=== PATIENT | male | born 1945 | race American Indian/Alaskan Native ===

== ENCOUNTER 2017-04-05 12:03 | Emergency (ER) | payer SELFPAY ==
[2017-04-05 12:18] VITALS: BP 138/98
--- NOTE | 2017-04-05 12:48 | Emergency Department Report ---
Entered by ANETA DODD, acting as scribe for NELLY ROGEL NP. Chief Complaint: Chest Pain Stated Complaint: CHEST PAIN - HPI History of Present Illness: 71 y/o male, nontoxic, well developed, NAD, c/o chest pain beginning 1 week ago. Associated pain radiation to the back but denies fever, SOB, NVD, MORALES, blurry vision, dizziness. Patient states the pain started when his daughter sprayed cleaning chemicals around the house. - Exam Vital Signs: Vital Signs 04/05/17 12:13 Temperature 98.6 F Pulse Rate 80 Respiratory 22 Rate Blood Pressure 138/98 O2 Sat by Pulse 98 Oximetry Physical Exam: GENERAL: The patient is a well-developed, well-nourished male in no apparent distress. Patient is alert and oriented x3. LUNGS: Clear to auscultation. Non labor breathing. No intercostal retractions. HEART: Regular rate and rhythm without murmur, rubs or gallops. No reproducible MSE screening note: Focused history and physical exam performed. Due to findings the following was ordered: CBC, CMP, BNP, EKG, PT, PTT, Troponin, Cardiac CK, Chest x-ray ED Disposition for MSE Condition: Stable This documentation as recorded by the scribe,ANETA DODD,accurately reflects the service I personally performed and the decisions made by ,NELLY ROGEL, ROGERIO.
[2017-04-05 13:04] LABS: Eosinophils % (Auto) 3.4 % (0.0-4.3); Hemoglobin 15.4 gm/dl (11.8-15.2); Mean Corpuscular HGB Conc 33 % (32-34); Mean Corpuscular Hemoglobin 33 pg (28-32); Mean Corpuscular Volume 98 fl (84-94); Platelet Count 199 K/mm3 (140-440); Red Blood Count 4.67 M/mm3 (3.65-5.03); Red Cell Distribution Width 14.9 % (13.2-15.2); White Blood Count 7.2 K/mm3 (4.5-11.0)
[2017-04-05 13:13] LABS: INR 0.99 (0.87-1.13)
[2017-04-05 13:14] LABS: Partial Thromboplastin Time 27.7 Sec. (24.2-36.6)
[2017-04-05 13:20] LABS: Creatine Kinase MB 2.8 ng/mL (0.0-4.0)
[2017-04-05 13:21] LABS: Alanine Aminotransferase 23 units/L (7-56); Albumin 4.2 g/dL (3.9-5); Albumin/Globulin Ratio 1.4 %; Alkaline Phosphatase 129 units/L (35-129); Anion Gap 19 mmol/L; Blood Urea Nitrogen 15 mg/dL (9-20); Calcium 10.4 mg/dL (8.4-10.2); Carbon Dioxide 27 mmol/L (22-30); Chloride 96.4 mmol/L (98-107); Creatine Kinase 208 units/L (55-170); Glucose 296 mg/dL (75-100); Potassium 4.5 mmol/L (3.6-5.0); Sodium 138 mmol/L (137-145); Total Protein 7.1 g/dL (6.3-8.2)
--- NOTE | 2017-04-05 14:29 | XRay Report ---
Chest 2 views: History: Chest pain. Findings: This normal cardiomediastinal silhouette the trachea is midline. Suspicion of circumscribed ill-defined 2 cm density right upper lobe. Impression: Pneumonia or mass right upper lobe. Recommend CT scan.
== END 2017-04-05 15:15 | disposition left against medical advice (07) ==
LOC: ED 12:03
DX: R07.9 Chest pain, unspecified (principal); Z53.21 Procedure and treatment not carried out due to patient leaving prior to being seen by health care provider
CPT/HCPCS: 36415; 71020; 80053; 82550; 82553; 83880; 84484; 85025; 85610; 85730; 93005; 93010